=== PATIENT | female | born 1980 ===

== ENCOUNTER 2017-08-04 15:52 | Outpatient (CLI) | payer OTHER ==
[~2017-08-04] VITALS: Ht 152.4 cm; Wt 77.1 kg
== END 2017-08-04 16:15 | disposition home or self-care (01) ==
LOC: OFIC 805 15:52
DX: R49.0 Dysphonia (principal); J30.89 Other allergic rhinitis; R49.8 Other voice and resonance disorders

== ENCOUNTER 2018-09-20 12:42 | Outpatient (CLI) | payer OTHER ==
[~2018-09-20] VITALS: Ht 152.4 cm; Wt 79.4 kg
== END 2018-09-20 13:00 | disposition home or self-care (01) ==
LOC: OFIC 805 12:42
DX: J30.89 Other allergic rhinitis (principal); R49.0 Dysphonia; R49.9 Unspecified voice and resonance disorder